=== PATIENT | male | born 1965 | race African-American/Black ===

== ENCOUNTER → 2016-06-13 | Outpatient (CLI) | payer OTHER | LOC: RAD 09:58 | PROVIDERS: ATTEND Internal Medicine Gastroenterology | DX: K76.0 Fatty (change of) liver, not elsewhere classified (principal); R93.3 Abnormal findings on diagnostic imaging of other parts of digestive tract | CPT/HCPCS: 74150; 82565 ==

== ENCOUNTER 2017-01-25 23:46 | Inpatient (IN) | payer OTHER ==
[2017-01-26 04:56] LABS: HEMATOCRIT 37.8 % (37.9-51.0); HEMOGLOBIN 13.3 g/dL (13.5-17.0); HGB HCT DIFFERENCE 2.1; MEAN CORPUSCULAR HEMOGLOBIN 28.3 pg (27.0-33.4); MEAN CORPUSCULAR HGB CONC 35.2 g/dL (32.0-36.0); MEAN CORPUSCULAR VOLUME 81 fl (80-97); RED CELL DISTRIBUTION WIDTH 14.2 % (11.5-14.0); WHITE BLOOD COUNT 12.5 10^3/uL (4.0-10.5)
[2017-01-26 05:18] LABS: BAND NEUTROPHILS % (MANUAL) 2 % (3-5); BASOPHILS % (MANUAL) 0 % (0-2); EOSINOPHILS % (MANUAL) 0 % (0-6); LYMPHOCYTES % (MANUAL) 12 % (13-45); TOTAL CELLS COUNTED 100; TOXIC GRANULATION SLIGHT; TOXIC VACUOLATION PRESENT
[2017-01-26 05:19] LABS: ANISOCYTOSIS SLIGHT; MICROCYTOSIS SLIGHT; ROULEAUX SLIGHT
[2017-01-26 05:32] LABS: APPEARANCE,URINE SLIGHTLY-CLOUDY; BILIRUBIN,URINE NEGATIVE (NEGATIVE); GLUCOSE, URINE >=500 mg/dL (NEGATIVE); KETONES,URINE TRACE mg/dL (NEGATIVE); LEUKOCYTE ESTERASE,URINE NEGATIVE (NEGATIVE); NITRITE,URINE NEGATIVE (NEGATIVE); PROTEIN,URINE 100 mg/dL (NEGATIVE); URINE SPECIFIC GRAVITY 1.018; UROBILINOGEN,URINE NEGATIVE mg/dL (<2.0)
--- NOTE | 2017-01-26 05:51 | ER Document Report ---
ED GI/ - General Mode of Arrival: Ambulatory Information source: Patient TRAVEL OUTSIDE OF THE [place] IN LAST 30 DAYS: No <MECHELLE CABA - Last Filed: 01/26/17 07:35> <MATIAS VAZQUEZ - Last Filed: 01/26/17 13:32> - General Chief Complaint: Abdominal Pain Stated Complaint: ABDOMINAL PAIN Time Seen by Provider: 01/26/17 03:11 Notes: Patient is a 51-year-old male who presents to the ER today for abdominal pain all over his abdomen 3 days. Patient states that there is no pattern with anything as it does not really ever go away and is pretty constant in nature. He still has all of his abdominal organs, has no history of pancreatitis or gallbladder disease. He states he has been having normal bowel movements. He denies any nausea or vomiting but does state that he has not had an appetite over the last few days. He denies any fevers or chills that he knows of. He does not drink any alcohol. (MECHELLE CABA) - Related Data Allergies/Adverse Reactions: No Known Allergies Allergy (Unverified 05/30/12 19:54) Home Medications: Current Home Medications Amlodipine Besylate [Norvasc 5 mg Tablet] 5 mg PO DAILY 01/26/17 [History] Aspirin [Adult Low Dose Aspirin EC] 81 mg PO DAILY 01/26/17 [History] Ergocalciferol (Vitamin D2) [Vitamin D2] 50,000 unit PO MOWE@1000 01/26/17 [ History] Esomeprazole Magnesium [Nexium] 40 mg PO DAILY 01/26/17 [History] Fenofibrate Nanocrystallized [Tricor] 145 mg PO DAILY 01/26/17 [History] Ibuprofen [Motrin 800 mg Tablet] 800 mg PO Q6HP PRN 01/26/17 [History] Linagliptin [Tradjenta] 5 mg PO DAILY 01/26/17 [History] Lisinopril/Hydrochlorothiazide [Lisinopril-Hctz 20-12.5 mg Tab] 2 each PO DAILY 01/26/17 [History] Nebivolol HCl [Bystolic] 20 mg PO DAILY 01/26/17 [History] [place]-3 Acid Ethyl Esters [Lovaza 1 gm Capsule] 1 gm PO DAILY 09/15/17 [History] Past Medical History - General Information source: Patient - Social History Smoking Status: Never Smoker Chew tobacco use (# tins/day): No Frequency of alcohol use: None Drug Abuse: None Family History: Reviewed & Not Pertinent Patient has suicidal ideation: No Patient has homicidal ideation: No - Past Medical History Cardiac Medical History: Reports: Hx Hypertension Denies: Hx Coronary Artery Disease, Hx Heart Attack Pulmonary Medical History: Reports: Hx COPD Denies: Hx Asthma, Hx Bronchitis, Hx Pneumonia Neurological Medical History: Denies: Hx Cerebrovascular Accident, Hx Seizures Renal/ Medical History: Denies: Hx Peritoneal Dialysis GI Medical History: Reports: Hx Gastroesophageal Reflux Disease Musculoskeltal Medical History: Denies Hx Arthritis Past Surgical History: Reports: Hx Umbilical Hernia - Immunizations Immunizations up to date: Yes Hx Diphtheria, Pertussis, Tetanus Vaccination: Yes <MECHELLE CABA - Last Filed: 01/26/17 07:35> Review of Systems - Review of Systems Constitutional: No symptoms reported EENT: No symptoms reported Cardiovascular: No symptoms reported Respiratory: No symptoms reported Gastrointestinal: See HPI Genitourinary: No symptoms reported Male Genitourinary: No symptoms reported Musculoskeletal: No symptoms reported Skin: No symptoms reported Hematologic/Lymphatic: No symptoms reported Neurological/Psychological: No symptoms reported <MECHELLE CABA - Last Filed: 01/26/17 07:35> Physical Exam <MECHELLE CABA - Last Filed: 01/26/17 07:35> <MATIAS VAZQUEZ - Last Filed: 01/26/17 13:32> - Vital signs Vitals: Temp Pulse Resp BP Pulse Ox 98.5 F 97 18 99/55 L 98 01/26/17 00:45 01/26/17 00:45 01/26/17 00:45 01/26/17 00:45 01/26/17 00:45 - Notes Notes: PHYSICAL EXAMINATION: GENERAL: Mildly uncomfortable appearing, but in no acute distress. HEAD: Atraumatic, normocephalic. EYES: Pupils equal round and reactive to light, extraocular movements intact, sclera anicteric, conjunctiva are normal. NECK: Normal range of motion, supple without lymphadenopathy LUNGS: CTAB and equal. No wheezes rales or rhonchi. HEART: Regular rate and rhythm without murmurs ABDOMEN: Soft, mild diffuse tenderness. No guarding, no rebound BACK: no vertebral tenderness, normal ROM GI/: no CVA tenderness EXTREMITIES: Normal range of motion, no pitting edema. No cyanosis. NEUROLOGICAL: Cranial nerves grossly intact. Normal sensory/motor exams. PSYCH: Normal mood, normal affect. SKIN: Warm, Dry, normal turgor, no rashes or lesions noted (MECHELLE CABA) Course - Laboratory Result Diagrams: 01/26/17 04:20 01/26/17 04:20 <MECHELLE CABA - Last Filed: 01/26/17 07:35> - Laboratory Result Diagrams: 01/26/17 04:20 01/26/17 08:23 - Diagnostic Test Radiology reviewed: Reports reviewed <MATIAS VAZQUEZ - Last Filed: 01/26/17 13:32> - Re-evaluation Re-evalutation: 01/26/17 07:38 White count is 12.5, CAT scan reveals pancreatitis or duodenitis type pattern. Awaiting CMP for lipase. (MECHELLE CABA) 01/26/17 07:30 Report and handoff received from Mechelle SHORE 01/26/17 08:16 Patient complains of continued abdominal pain. Lab to redraw patient's blood as it hemolyzed yet again. 01/26/17 09:[address] Sr regarding patient management. Advises IV insulin , sodium bicarb as well as albuterol nebulizer. Advises consultation with patient's primary doctor for admission peer 01/26/17 09:49 Dr. Sr reviewed patient's EKG, advises giving patient 20 units of insulin IV at this time. Consulted with Dr. Sánchez who agrees to accept patient to [facility] for admission (MATIAS VAZQUEZ) - Vital Signs Vital signs: Temp Pulse Resp BP Pulse Ox 98.3 F 84 16 123/80 94 01/26/17 08:28 01/26/17 08:28 01/26/17 12:17 01/26/17 12:17 01/26/17 12:17 - Laboratory Laboratory results interpreted by me: 01/26/17 01/26/17 01/26/17 04:20 05:15 08:23 WBC 12.5 H Hgb 13.3 L Hct 37.8 L RDW 14.2 H Seg Neuts % (Manual) 80 H Band Neutrophils % 2 L Lymphocytes % (Manual) 12 L Abs Neuts (Manual) 10.3 H Sodium 126.0 L Potassium 6.6 H* Chloride 90 L Carbon Dioxide 11 L Anion Gap 25 H BUN 66 H Creatinine 3.77 H Est GFR ( Amer) 21 L Est GFR (Non-Af Amer) 17 L Glucose 712 H* Calcium 10.8 H Direct Bilirubin 0.9 H Total Protein 9.5 H Lipase 797.4 H Urine Protein 100 H Urine Glucose (UA) >=500 H Urine Ketones TRACE H Urine Blood MODERATE H 01/26/17 09:50 Labs- Entire Visit 01/26/17 01/26/17 01/26/17 04:20 04:20 04:50 WBC 12.5 H RBC 4.70 Hgb 13.3 L Hct 37.8 L MCV 81 MCH 28.3 MCHC 35.2 RDW 14.2 H Plt Count 277 Total Counted 100 Seg Neutrophils % Not Reportable Seg Neuts % (Manual) 80 H Band Neutrophils % 2 L Lymphocytes % Not Reportable Lymphocytes % (Manual) 12 L Monocytes % Not Reportable Monocytes % (Manual) 6 Eosinophils % Not Reportable Eosinophils % (Manual) 0 Basophils % Not Reportable Basophils % (Manual) 0 Absolute Neutrophils Not Reportable Abs Neuts (Manual) 10.3 H Absolute Lymphocytes Not Reportable Abs Lymphs (Manual) 1.5 Absolute Monocytes Not Reportable Abs Monocytes (Manual) 0.8 Absolute Eosinophils Not Reportable Absolute Eos (Manual) 0.0 Absolute Basophils Not Reportable Abs Basophils (Manual) 0.0 Toxic Granulation SLIGHT Toxic Vacuolation PRESENT Platelet Comment ADEQUATE Anisocytosis SLIGHT Microcytosis SLIGHT Rouleaux SLIGHT Sodium Cancelled Cancelled Potassium Cancelled Cancelled Chloride Cancelled Cancelled Carbon Dioxide Cancelled Cancelled Anion Gap Cancelled Cancelled BUN Cancelled Cancelled Creatinine Cancelled Cancelled Est GFR ( Amer) Cancelled Cancelled Est GFR (Non-Af Amer) Cancelled Cancelled Glucose Cancelled Cancelled Calcium Cancelled Cancelled Total Bilirubin Cancelled Cancelled Direct Bilirubin Cancelled Cancelled Indirect Bilirubin Cancelled Cancelled Neonat Total Bilirubin Cancelled Cancelled AST Cancelled Cancelled ALT Cancelled Cancelled Alkaline Phosphatase Cancelled Cancelled Total Protein Cancelled Cancelled Albumin Cancelled Cancelled Lipase Cancelled Cancelled Urine Color Urine Appearance Urine pH Ur Specific [place] Urine Protein Urine Glucose (UA) Urine Ketones Urine Blood Urine Nitrite Urine Bilirubin Urine Urobilinogen Ur Leukocyte Esterase Urine WBC (Auto) Urine RBC (Auto) Squamous Epi Cells Auto Urine Mucus (Auto) Urine Ascorbic Acid 01/26/17 01/26/17 01/26/17 05:15 06:30 07:30 WBC RBC Hgb Hct MCV MCH MCHC RDW Plt Count Total Counted Seg Neutrophils % Seg Neuts % (Manual) Band Neutrophils % Lymphocytes % Lymphocytes % (Manual) Monocytes % Monocytes % (Manual) Eosinophils % Eosinophils % (Manual) Basophils % Basophils % (Manual) Absolute Neutrophils Abs Neuts (Manual) Absolute Lymphocytes Abs Lymphs (Manual) Absolute Monocytes Abs Monocytes (Manual) Absolute Eosinophils Absolute Eos (Manual) Absolute Basophils Abs Basophils (Manual) Toxic Granulation Toxic Vacuolation Platelet Comment Anisocytosis Microcytosis Rouleaux Sodium Cancelled Cancelled Potassium Cancelled Cancelled Chloride Cancelled Cancelled Carbon Dioxide Cancelled Cancelled Anion Gap Cancelled Cancelled BUN Cancelled Cancelled Creatinine Cancelled Cancelled Est GFR ( Amer) Cancelled Cancelled Est GFR (Non-Af Amer) Cancelled Cancelled Glucose Cancelled Cancelled Calcium Cancelled Cancelled Total Bilirubin Cancelled Cancelled Direct Bilirubin Cancelled Cancelled Indirect Bilirubin Cancelled Cancelled Neonat Total Bilirubin Cancelled Cancelled AST Cancelled Cancelled ALT Cancelled Cancelled Alkaline Phosphatase Cancelled Cancelled Total Protein Cancelled Cancelled Albumin Cancelled Cancelled Lipase Cancelled Cancelled Urine Color YELLOW Urine Appearance SLIGHTLY-CLOUDY Urine pH 5.0 Ur Specific [place] 1.018 Urine Protein 100 H Urine Glucose (UA) >=500 H Urine Ketones TRACE H Urine Blood MODERATE H Urine Nitrite NEGATIVE Urine Bilirubin NEGATIVE Urine Urobilinogen NEGATIVE Ur Leukocyte Esterase NEGATIVE Urine WBC (Auto) 2 Urine RBC (Auto) 0 Squamous Epi Cells Auto <1 Urine Mucus (Auto) RARE Urine Ascorbic Acid NEGATIVE 01/26/17 08:23 WBC RBC Hgb Hct MCV MCH MCHC RDW Plt Count Total Counted Seg Neutrophils % Seg Neuts % (Manual) Band Neutrophils % Lymphocytes % Lymphocytes % (Manual) Monocytes % Monocytes % (Manual) Eosinophils % Eosinophils % (Manual) Basophils % Basophils % (Manual) Absolute Neutrophils Abs Neuts (Manual) Absolute Lymphocytes Abs Lymphs (Manual) Absolute Monocytes Abs Monocytes (Manual) Absolute Eosinophils Absolute Eos (Manual) Absolute Basophils Abs Basophils (Manual) Toxic Granulation Toxic Vacuolation Platelet Comment Anisocytosis Microcytosis Rouleaux Sodium 126.0 L Potassium 6.6 H* Chloride 90 L Carbon Dioxide 11 L Anion Gap 25 H BUN 66 H Creatinine 3.77 H Est GFR ( Amer) 21 L Est GFR (Non-Af Amer) 17 L Glucose 712 H* Calcium 10.8 H Total Bilirubin 1.1 Direct Bilirubin 0.9 H Indirect Bilirubin Not Reportable Neonat Total Bilirubin Not Reportable AST 31 ALT 47 Alkaline Phosphatase 87 Total Protein 9.5 H Albumin 4.1 Lipase 797.4 H Urine Color Urine Appearance Urine pH Ur Specific [place] Urine Protein Urine Glucose (UA) Urine Ketones Urine Blood Urine Nitrite Urine Bilirubin Urine Urobilinogen Ur Leukocyte Esterase Urine WBC (Auto) Urine RBC (Auto) Squamous Epi Cells Auto Urine Mucus (Auto) Urine Ascorbic Acid (MATIAS VAZQUEZ) Discharge <MECHELLE CABA - Last Filed: 01/26/17 07:35> - Discharge Admitting Provider: Gonzalo Unit Admitted: [facility] <MATIAS VAZQUEZ - Last Filed: 01/26/17 13:32> - Discharge Clinical Impression: Duodenitis, Acute kidney injury, Hyperkalemia, Hyperglycemia Abdominal pain Qualifiers: Abdominal location: generalized Qualified Code(s): R10.84 - Generalized abdominal pain Disposition: ADMITTED INPATIENT
--- NOTE | 2017-01-26 07:25 | RADIOLOGY REPORT (SQ) ---
EXAM DESCRIPTION: CT ABD/PELVIS NO ORAL OR IV COMPLETED DATE/TIME: 01/26/2017 7:09 am REASON FOR STUDY: abd pain, rlq, nausea COMPARISON: 1.31.17 TECHNIQUE: CT scan of the abdomen and pelvis performed without intravenous or oral contrast. Images reviewed with lung, soft tissue, and bone windows. Reconstructed coronal and sagittal MPR images revi ewed. All images stored on PACS. All CT scanners at this facility use dose modulation, iterative reconstruction, and/or weight based d osing when appropriate to reduce radiation dose to as low as reasonably achievable (ALARA). [facility]: Dose Right [facility]: CareDose [facility]: Dose Right [facility]: Teradose 4D [facility]: [employer] RADIATION DOSE: Up-to-date CT equipment and radiation dose reduction techniques were employed. CTDIv ol: 12.5 mGy. DLP: 706 mGy-cm.mGy. LIMITATIONS: None. FINDINGS: LOWER CHEST: No significant findings. No nodules or infiltrates. NON-CONTRASTED LIVER, SPLEEN, ADRENALS: Evaluation limited by lack of IV contrast. No identified sign ificant masses. Low-density area of of the right hepatic lobe medially consistent with previously mckenna spected fatty infiltration. No suspicious enhancement abnormality. PANCREAS: Small fluid surrounds the pancreatic head and 2nd duodenum portion and small ascites extend s toward the right pericolic gutter. GALLBLADDER: No identified stones by CT criteria. No inflammatory changes to suggest cholecystitis. RIGHT KIDNEY AND URETER: No suspicious masses. Assessment limited by lack of IV contrast. No signif icant calcifications. No hydronephrosis or hydroureter. LEFT KIDNEY AND URETER: No suspicious masses. Assessment limited by lack of IV contrast. No signifi cant calcifications. No hydronephrosis or hydroureter. AORTA AND RETROPERITONEUM: No aneurysm. No retroperitoneal masses or adenopathy. BOWEL AND PERITONEAL CAVITY: No obvious masses or inflammatory changes. Small ascites as above. Sma ll diverticulosis. APPENDIX: Normal. PELVIS, BLADDER, AND ABDOMINAL WALL:No abnormal masses. Bladder normal. BONES: Mild L5-S1 vacuum disc desiccation. Mild-moderate bilateral L5 foraminal stenosis. OTHER: No other significant finding. IMPRESSION: Moderate pancreatitis/duodenitis pattern. COMMENT: Quality ID # [id number]: Final reports with documentation of one or more dose reduction techniques (e.g., Automated exposure control, adjustment of the mA and/or kV according to patient size, use of iterative reconstruction technique) TECHNICAL DOCUMENTATION: JOB ID: [id number] All Rights Reserved
[2017-01-26] MEDS ORDERED: NORMAL SALINE 1000 ML 1,000 ML IV ONE ×3 (08:16→10:20)
[2017-01-26 08:51] LABS: ALBUMIN 4.1 g/dL (3.5-5.0); BILIRUBIN,DIRECT 0.9 mg/dL (0.0-0.4); BILIRUBIN,TOTAL 1.1 mg/dL (0.2-1.3); CALCIUM 10.8 mg/dL (8.4-10.2); CARBON DIOXIDE 11 mmol/L (22-30); CHLORIDE 90 mmol/L (98-107); CREATININE RESULT 3.77 mg/dL (0.52-1.25); LIPASE 797.4 U/L (23-300); TOTAL PROTEIN 9.5 g/dL (6.3-8.2)
[2017-01-26 09:13] LABS: ANION GAP 25 (5-19)
[2017-01-26 09:18] LABS: GLUCOSE 712 mg/dL (75-110)
[2017-01-26 09:19] LABS: POTASSIUM 6.6 mmol/L (3.6-5.0)
[2017-01-26 09:20] LABS: BLOOD UREA NITROGEN 66 mg/dL (7-20)
[2017-01-26 09:21] LABS: ALANINE AMINOTRANSFERASE 47 U/L (21-72); ALKALINE PHOSPHATASE 87 U/L (38-126); ASPARTATE AMINO TRANSFERASE 31 U/L (17-59)
[2017-01-26] MEDS ORDERED: SODIUM BICARBONATE 8.4% INJ 50 MEQ/50 ML DISP.SYRIN IV ONE (09:35)
[2017-01-26] MEDS ORDERED: ALBUTEROL SULFATE 0.083% NEB 2.5 MG/3 ML AMPUL NEB ONE (09:35)
[2017-01-26] MEDS ORDERED: INSULIN REG, HUMAN 100 UNIT/ML 3 ML VIAL (PYX) IV ONE ×2 (09:35→09:49)
[2017-01-26] MEDS ORDERED: NORMAL SALINE 1000 ML 1,000 ML IV PRN ×2 (11:05→13:14)
[2017-01-26] MEDS ORDERED: GLUCAGON,HUMAN RECOMB 1 MG INJ SUBCUT PRN (13:15)
[2017-01-26] MEDS ORDERED: DEXTROSE 50%-WATER 25 GM/50 ML DISP.SYRIN IV PRN ×4 (13:15→13:19)
[2017-01-26] MEDS ORDERED: DEXTROSE 40% GEL 15 GM TUBE PO PRN ×4 (13:15→13:19)
[2017-01-26] MEDS ORDERED: GLUCAGON,HUMAN RECOMB 1 MG INJ IM PRN (13:19)
[2017-01-26 14:17] LABS: HEMATOCRIT 33.3 % (37.9-51.0); HEMOGLOBIN 11.9 g/dL (13.5-17.0); HGB HCT DIFFERENCE 2.4; MEAN CORPUSCULAR HEMOGLOBIN 27.8 pg (27.0-33.4); MEAN CORPUSCULAR HGB CONC 35.7 g/dL (32.0-36.0); MEAN CORPUSCULAR VOLUME 78 fl (80-97); RED BLOOD COUNT 4.27 10^6/uL (4.35-5.55); WHITE BLOOD COUNT 9.3 10^3/uL (4.0-10.5)
[2017-01-26 14:22] LABS: PROTHROMBIN TIME 13.5 SEC (11.4-15.4)
[2017-01-26 14:39] LABS: BASOPHILS % (MANUAL) 0 % (0-2); EOSINOPHILS % (MANUAL) 0 % (0-6); LYMPHOCYTES % (MANUAL) 18 % (13-45); TOTAL CELLS COUNTED 100
[2017-01-26 14:40] LABS: TOXIC VACUOLATION PRESENT
[2017-01-26 14:41] LABS: ANION GAP 19 (5-19); BLOOD UREA NITROGEN 59 mg/dL (7-20); CALCIUM 9.9 mg/dL (8.4-10.2); CARBON DIOXIDE 15 mmol/L (22-30); CHLORIDE 97 mmol/L (98-107); SODIUM 130.6 mmol/L (137-145)
[2017-01-26 14:42] LABS: ANISOCYTOSIS SLIGHT; MICROCYTOSIS SLIGHT; PLATELET CLUMPS PRESENT
[2017-01-26 14:43] LABS: ROULEAUX SLIGHT
[2017-01-26 14:54] LABS: CREATINE KINASE MB 0.99 ng/mL (<4.55)
[2017-01-26 15:00] LABS: TROPONIN I < 0.012 ng/mL
[2017-01-26 15:01] LABS: POTASSIUM 5.6 mmol/L (3.6-5.0)
[2017-01-26 15:06] LABS: GLUCOSE 579 mg/dL (75-110)
[2017-01-26 15:11] LABS: THYROID STIMULATING HORMONE 0.52 uIU/mL (0.47-4.68)
[2017-01-26] MEDS: HEPARIN SOD (PORCINE) 5,000 UNIT/ML 1 ML SYRINGE SUBCUT SCH ×2 (16:17→21:16)
[2017-01-26] MEDS: NORMAL SALINE 100 ML with INSULIN REGULAR, HUMAN 100 UNIT IV PRN ×2 (16:23)
--- NOTE | 2017-01-26 17:21 | EKG REPORT ---
SEVERITY:- BORDERLINE ECG - SINUS RHYTHM BORDERLINE T ABNORMALITIES, INFERIOR LEADS : Confirmed by: Glenda Spencer 26-Jan-2017 17:20:49
[2017-01-26 17:32] LABS: APPEARANCE,URINE CLEAR; BILIRUBIN,URINE NEGATIVE (NEGATIVE); GLUCOSE, URINE >=500 mg/dL (NEGATIVE); KETONES,URINE TRACE mg/dL (NEGATIVE); LEUKOCYTE ESTERASE,URINE NEGATIVE (NEGATIVE); NITRITE,URINE NEGATIVE (NEGATIVE); PROTEIN,URINE 30 mg/dL (NEGATIVE); URINE SPECIFIC GRAVITY 1.014; UROBILINOGEN,URINE NEGATIVE mg/dL (<2.0)
[2017-01-26 17:47] LABS: URINE BARBITURATES SCREEN NEGATIVE; URINE METHADONE SCREEN NEGATIVE; URINE OPIATES LOW NEGATIVE; URINE PHENCYCLIDINE SCREEN NEGATIVE
[2017-01-26 17:52] LABS: ANION GAP 17 (5-19); BLOOD UREA NITROGEN 55 mg/dL (7-20); CALCIUM 10.1 mg/dL (8.4-10.2); CARBON DIOXIDE 17 mmol/L (22-30); CHLORIDE 99 mmol/L (98-107); CREATININE RESULT 2.66 mg/dL (0.52-1.25); SODIUM 132.6 mmol/L (137-145)
[2017-01-26 18:38] LABS: GLUCOSE 444 mg/dL (75-110)
--- NOTE | 2017-01-26 20:03 | PDOC H&P ---
History of Present Illness Admission Date/PCP: 01/26/17 13:16 JUNIOR GROSS MD History of Present Illness: JARRELL MCNALLY is a 51 year old male he came to the emergency room today for evaluation of abdominal pain for the last 3 days, he has a history of chronic kidney disease stage III, progressive, he was recently diagnosed with diabetes mellitus, and he was recently started on Tradjenta and insulin because of his chronic kidney disease it could not be started on many of the oral hypoglycemic agents. In the emergency room he was evaluated a CAT scan of the abdomen and pelvis was done with no contrast it showed fluid surrounds the pancreas and consistent with pancreatitis, the serum lipase was elevated he was also in diabetic ketoacidosis. The glucose was 712, lipase 797, anion gap 25, creatinine 3.77 potassium 6.6 Past Medical History Cardiac Medical History: Reports: Hypertension Pulmonary Medical History: Reports: Chronic Obstructive Pulmonary Disease (COPD) Endocrine Medical History: Reports: Diabetes Mellitus Type 2 Renal/ Medical History: Reports: Other - Chronic kidney disease stage III GI Medical History: Reports: Gastroesophageal Reflux Disease Social History Smoking Status: Never Smoker Hx Recreational Drug Use: No Hx Prescription Drug Abuse: No - Advance Directive Resuscitation Status: Full Code Family History Family History: Reviewed & Not Pertinent Parental Family History Reviewed: Yes Children Family History Reviewed: Yes Sibling(s) Family History Reviewed.: Yes Medication/Allergy Home Medications: Amlodipine Besylate [Norvasc 5 mg Tablet] 5 mg PO DAILY 01/26/17 Aspirin [Adult Low Dose Aspirin EC] 81 mg PO DAILY 01/26/17 Ergocalciferol (Vitamin D2) [Vitamin D2] 50,000 unit PO MOWE@1000 01/26/17 Esomeprazole Magnesium [Nexium] 40 mg PO DAILY 01/26/17 Fenofibrate Nanocrystallized [Tricor] 145 mg PO DAILY 01/26/17 Ibuprofen [Motrin 800 mg Tablet] 800 mg PO Q6HP PRN 01/26/17 Linagliptin [Tradjenta] 5 mg PO DAILY 01/26/17 Lisinopril/Hydrochlorothiazide [Lisinopril-Hctz 20-12.5 mg Tab] 2 each PO DAILY 01/26/17 Nebivolol HCl [Bystolic] 20 mg PO DAILY 01/26/17 [place]-3 Acid Ethyl Esters [Lovaza 1 gm Capsule] 1 gm PO DAILY 01/26/17 Allergies/Adverse Reactions: No Known Allergies Allergy (Unverified 05/30/12 19:54) Review of Systems Constitutional: PRESENT: fever(s) Eyes: ABSENT: visual disturbances Ears: ABSENT: hearing changes Cardiovascular: ABSENT: chest pain, dyspnea on exertion, edema, orthropnea, palpitations Respiratory: ABSENT: cough, hemoptysis Gastrointestinal: PRESENT: abdominal pain Genitourinary: ABSENT: dysuria, hematuria Musculoskeletal: ABSENT: joint swelling Integumentary: ABSENT: rash, wounds Neurological: ABSENT: abnormal gait, abnormal speech, confusion, dizziness, focal weakness, syncope Psychiatric: ABSENT: anxiety, depression, homidical ideation, suicidal ideation Endocrine: ABSENT: cold intolerance, heat intolerance, menstrual abnormalities, polydipsia, polyuria Hematologic/Lymphatic: ABSENT: easy bleeding, easy bruising, lymphadenopathy Physical Exam Vital Signs: Temp Pulse Resp BP Pulse Ox 98.3 F 85 18 130/70 H 94 01/26/17 17:03 01/26/17 17:03 01/26/17 17:03 01/26/17 17:03 01/26/17 17:03 Intake & Output 01/25/17 01/26/17 01/27/17 06:59 06:59 06:59 Weight 110.9 kg General appearance: PRESENT: no acute distress, well-developed, well-nourished Head exam: PRESENT: atraumatic, normocephalic Eye exam: PRESENT: conjunctiva pink, EOMI, PERRLA Ear exam: PRESENT: normal external ear exam Mouth exam: PRESENT: dry mucosa Neck exam: PRESENT: full ROM Respiratory exam: PRESENT: clear to auscultation duglas Cardiovascular exam: PRESENT: RRR, +S1, +S2 GI/Abdominal exam: PRESENT: normal bowel sounds, soft Rectal exam: PRESENT: deferred Neurological exam: PRESENT: alert, awake, oriented to person, oriented to place , oriented to time, oriented to situation, CN II-XII grossly intact Psychiatric exam: PRESENT: appropriate affect, normal mood Skin exam: PRESENT: dry, intact, warm Results Laboratory Results: 01/26/17 14:04 01/26/17 17:30 01/26/17 01/26/17 01/26/17 14:04 14:04 14:04 WBC 9.3 RBC 4.27 L Hgb 11.9 L Hct 33.3 L MCV 78 L MCH 27.8 MCHC 35.7 RDW 14.0 Plt Count 240 Seg Neutrophils % Not Reportable Lymphocytes % Not Reportable Monocytes % Not Reportable Eosinophils % Not Reportable Basophils % Not Reportable Absolute Neutrophils Not Reportable Absolute Lymphocytes Not Reportable Absolute Monocytes Not Reportable Absolute Eosinophils Not Reportable Absolute Basophils Not Reportable Sodium Potassium Chloride Carbon Dioxide Anion Gap BUN Creatinine Est GFR ( Amer) Est GFR (Non-Af Amer) Glucose Calcium Phosphorus 6.0 H TSH 0.52 Free T4 1.06 Urine Color Urine Appearance Urine pH Ur Specific [place] Urine Protein Urine Glucose (UA) Urine Ketones Urine Blood Urine Nitrite Ur Leukocyte Esterase Urine WBC (Auto) 01/26/17 01/26/17 01/26/17 14:04 17:00 17:30 WBC RBC Hgb Hct MCV MCH MCHC RDW Plt Count Seg Neutrophils % Lymphocytes % Monocytes % Eosinophils % Basophils % Absolute Neutrophils Absolute Lymphocytes Absolute Monocytes Absolute Eosinophils Absolute Basophils Sodium 130.6 L 132.6 L Potassium 5.6 H D 5.0 Chloride 97 L 99 Carbon Dioxide 15 L 17 L Anion Gap 19 17 BUN 59 H 55 H Creatinine 3.00 H 2.66 H Est GFR ( Amer) 27 L 31 L Est GFR (Non-Af Amer) 22 L 25 L Glucose 579 H* 444 H* Calcium 9.9 10.1 Phosphorus TSH Free T4 Urine Color STRAW Urine Appearance CLEAR Urine pH 6.0 Ur Specific [place] 1.014 Urine Protein 30 H Urine Glucose (UA) >=500 H Urine Ketones TRACE H Urine Blood MODERATE H Urine Nitrite NEGATIVE Ur Leukocyte Esterase NEGATIVE Urine WBC (Auto) 1 01/26/17 01/26/17 14:04 14:04 CK-MB (CK-2) 0.99 Troponin I < 0.012 NT-Pro-B Natriuret Pep 28 Impressions: Abdomen/Pelvis CT 01/26/17 05:24 IMPRESSION: Moderate pancreatitis/duodenitis pattern. Assessment & Plan - Diagnosis (1) Acute pancreatitis Qualifiers: Pancreatitis type: unspecified pancreatitis type Acute pancreatitis complication: unspecified Qualified Code(s): K85.90 - Acute pancreatitis without necrosis or infection, unspecified Is this a current diagnosis for this admission?: Yes Plan: The acute pancreatitis is most likely metabolic in etiology, the CAT scan of the abdomen did not show any stones in the gallbladder, he does not drink alcohol, he has a history of hyperlipidemia/hypertriglyceridemia, he is supposed to be on medication for triglyceride. He be kept n.p.o. (2) Diabetic ketoacidosis Qualifiers: Diabetes mellitus type: type 2 Diabetes mellitus complication detail: without coma Qualified Code(s): E13.10 - Other specified diabetes mellitus with ketoacidosis without coma Is this a current diagnosis for this admission?: Yes Plan: Patient in DKA, the trigger could be acute pancreatitis, he would be managed per protocol (3) Hyperkalemia Is this a current diagnosis for this admission?: Yes
[2017-01-26] MEDS ORDERED: OMEGA-3 ACID ETHYL ESTERS 1 GM CAPSULE PO SCH (20:15)
[2017-01-26] MEDS ORDERED: AMLODIPINE BESYLATE 5 MG TABLET PO SCH (20:15)
[2017-01-26] MEDS ORDERED: (PENDING PHARMACY ID) (Nebivolol Hcl [Bystolic] 20 MG) PO SCH (20:15)
[2017-01-26] MEDS ORDERED: AMLODIPINE BESYLATE 5 MG TABLET PO ONE (20:30)
[2017-01-26] MEDS ORDERED: NEBIVOLOL HCL 10 MG TABLET PO ONE (21:00)
[2017-01-26] MEDS ORDERED: LANSOPRAZOLE 30 MG TAB.RAP.DR PO ONE (21:00)
[2017-01-26] MEDS ORDERED: OMEGA-3 ACID ETHYL ESTERS 1 GM CAPSULE PO ONE (21:15)
[2017-01-26 21:49] LABS: CREATINE KINASE MB 1.17 ng/mL (<4.55)
[2017-01-26 21:50] LABS: TROPONIN I < 0.012 ng/mL
[2017-01-26] MEDS ORDERED: INSULIN GLARGINE,HUM.REC.ANLOG 300 UNIT/3 ML INSULN.PEN SUBCUT SCH (22:00)
[2017-01-26 22:13] LABS: ANION GAP 16 (5-19); BLOOD UREA NITROGEN 52 mg/dL (7-20); CALCIUM 10.9 mg/dL (8.4-10.2); CARBON DIOXIDE 17 mmol/L (22-30); CHLORIDE 103 mmol/L (98-107); CREATININE RESULT 2.44 mg/dL (0.52-1.25); GLUCOSE 244 mg/dL (75-110); POTASSIUM 4.7 mmol/L (3.6-5.0); SODIUM 136.2 mmol/L (137-145)
[2017-01-27] MEDS: DEXTROSE 5%-NORMAL SALINE 1,000 ML IV PRN (00:47)
[2017-01-27 01:49] LABS: ANION GAP 13 (5-19); BLOOD UREA NITROGEN 53 mg/dL (7-20); CALCIUM 10.7 mg/dL (8.4-10.2); CARBON DIOXIDE 22 mmol/L (22-30); CHLORIDE 105 mmol/L (98-107); GLUCOSE 134 mg/dL (75-110); POTASSIUM 4.1 mmol/L (3.6-5.0); SODIUM 139.9 mmol/L (137-145)
[2017-01-27 02:00] LABS: CREATINE KINASE MB 0.94 ng/mL (<4.55)
[2017-01-27 02:02] LABS: TROPONIN I < 0.012 ng/mL
[2017-01-27] MEDS: HEPARIN SOD (PORCINE) 5,000 UNIT/ML 1 ML SYRINGE SUBCUT SCH ×3 (05:59→21:55)
[2017-01-27 06:14] LABS: ALANINE AMINOTRANSFERASE 37 U/L (21-72); ALBUMIN 3.8 g/dL (3.5-5.0); ALKALINE PHOSPHATASE 65 U/L (38-126); AMYLASE 135 U/L (30-110); ANION GAP 13 (5-19); ASPARTATE AMINO TRANSFERASE 28 U/L (17-59); BILIRUBIN,DIRECT 0.5 mg/dL (0.0-0.4); BILIRUBIN,TOTAL 0.6 mg/dL (0.2-1.3); BLOOD UREA NITROGEN 53 mg/dL (7-20); CALCIUM 10.4 mg/dL (8.4-10.2); CARBON DIOXIDE 20 mmol/L (22-30); CHLORIDE 105 mmol/L (98-107); CREATININE RESULT 2.73 mg/dL (0.52-1.25); Direct HDL 30 mg/dL (>40); GLUCOSE 77 mg/dL (75-110); LIPASE 638.4 U/L (23-300); MAGNESIUM 2.9 mg/dL (1.6-2.3); POTASSIUM 4.2 mmol/L (3.6-5.0); SODIUM 138.3 mmol/L (137-145); TOTAL PROTEIN 7.6 g/dL (6.3-8.2)
[2017-01-27 06:25] LABS: DIRECT LDL 79 mg/dL (<100)
[2017-01-27 06:39] LABS: CHOLESTEROL 610.36 mg/dL (0-200); TRIGLYCERIDES 2937 mg/dL (<150)
[2017-01-27] MEDS: AMLODIPINE BESYLATE 5 MG TABLET PO SCH (09:09)
[2017-01-27] MEDS: OMEGA-3 ACID ETHYL ESTERS 1 GM CAPSULE PO SCH (09:09)
[2017-01-27] MEDS: NORMAL SALINE 100 ML with INSULIN REGULAR, HUMAN 100 UNIT IV PRN ×2 (09:10)
[2017-01-27] MEDS: LANSOPRAZOLE 30 MG TAB.RAP.DR PO SCH (09:10)
[2017-01-27] MEDS ORDERED: (PENDING PHARMACY ID) (Linagliptin [Tradjenta] 5 MG) PO SCH (10:00)
[2017-01-27] MEDS ORDERED: SITAGLIPTIN PHOSPHATE 50 MG TABLET PO SCH (10:00)
[2017-01-27] MEDS: NEBIVOLOL HCL 10 MG TABLET PO SCH (10:23)
[2017-01-27 11:17] LABS: ANION GAP 13 (5-19); BLOOD UREA NITROGEN 51 mg/dL (7-20); CALCIUM 10.5 mg/dL (8.4-10.2); CARBON DIOXIDE 23 mmol/L (22-30); CHLORIDE 102 mmol/L (98-107); CREATININE RESULT 2.63 mg/dL (0.52-1.25); GLUCOSE 110 mg/dL (75-110); POTASSIUM 4.8 mmol/L (3.6-5.0); SODIUM 137.9 mmol/L (137-145)
--- NOTE | 2017-01-27 14:18 | PDOC PROGRESS REPORT ---
Subjective Progress Note for:: 01/27/17 Subjective:: Patient continue to experience slight abdominal pain. No nausea or vomiting. Tolerating ice chips. No fever or chills. No chest pain or SOB. Remain on IV fluid support therapy. Physical Exam Vital Signs: Temp Pulse Resp BP Pulse Ox 98.0 F 70 17 112/78 96 01/27/17 11:47 01/27/17 11:47 01/27/17 11:47 01/27/17 11:47 01/27/17 11:47 Intake & Output 01/26/17 01/27/17 01/28/17 06:59 06:59 06:59 Intake Total 2418 Balance 2418 Weight 111.2 kg General appearance: PRESENT: no acute distress Head exam: PRESENT: atraumatic, normocephalic Eye exam: PRESENT: conjunctiva pink, scleral icterus. ABSENT: conjunctiva pale Mouth exam: PRESENT: moist Respiratory exam: PRESENT: clear to auscultation duglas Cardiovascular exam: PRESENT: RRR. ABSENT: diastolic murmur, rubs, systolic murmur GI/Abdominal exam: PRESENT: normal bowel sounds, tenderness - lower quadrants. ABSENT: ascites, distended, guarding, mass, Bass's sign, rebound Rectal exam: PRESENT: deferred Extremities exam: ABSENT: pedal edema Musculoskeletal exam: PRESENT: normal inspection Neurological exam: PRESENT: alert, awake, oriented to person, oriented to place , oriented to time, oriented to situation, CN II-XII grossly intact. ABSENT: motor sensory deficit Psychiatric exam: PRESENT: appropriate affect, normal mood. ABSENT: homicidal ideation, suicidal ideation Skin exam: PRESENT: dry, intact, warm. ABSENT: cyanosis, rash Results Laboratory Results: 01/26/17 14:04 01/27/17 10:36 01/26/17 01/26/17 01/26/17 14:04 14:04 14:04 WBC 9.3 RBC 4.27 L Hgb 11.9 L Hct 33.3 L MCV 78 L MCH 27.8 MCHC 35.7 RDW 14.0 Plt Count 240 Seg Neutrophils % Not Reportable Lymphocytes % Not Reportable Monocytes % Not Reportable Eosinophils % Not Reportable Basophils % Not Reportable Absolute Neutrophils Not Reportable Absolute Lymphocytes Not Reportable Absolute Monocytes Not Reportable Absolute Eosinophils Not Reportable Absolute Basophils Not Reportable Sodium Potassium Chloride Carbon Dioxide Anion Gap BUN Creatinine Est GFR ( Amer) Est GFR (Non-Af Amer) Glucose Calcium Phosphorus 6.0 H Magnesium Total Bilirubin AST ALT Alkaline Phosphatase Total Protein Albumin Triglycerides Cholesterol LDL Cholesterol Direct VLDL Cholesterol HDL Cholesterol Amylase Lipase TSH 0.52 Free T4 1.06 Urine Color Urine Appearance Urine pH Ur Specific Victoria Urine Protein Urine Glucose (UA) Urine Ketones Urine Blood Urine Nitrite Ur Leukocyte Esterase Urine WBC (Auto) 01/26/17 01/26/17 01/26/17 14:04 17:00 17:30 WBC RBC Hgb Hct MCV MCH MCHC RDW Plt Count Seg Neutrophils % Lymphocytes % Monocytes % Eosinophils % Basophils % Absolute Neutrophils Absolute Lymphocytes Absolute Monocytes Absolute Eosinophils Absolute Basophils Sodium 130.6 L 132.6 L Potassium 5.6 H D 5.0 Chloride 97 L 99 Carbon Dioxide 15 L 17 L Anion Gap 19 17 BUN 59 H 55 H Creatinine 3.00 H 2.66 H Est GFR ( Amer) 27 L 31 L Est GFR (Non-Af Amer) 22 L 25 L Glucose 579 H* 444 H* Calcium 9.9 10.1 Phosphorus Magnesium Total Bilirubin AST ALT Alkaline Phosphatase Total Protein Albumin Triglycerides Cholesterol LDL Cholesterol Direct VLDL Cholesterol HDL Cholesterol Amylase Lipase TSH Free T4 Urine Color STRAW Urine Appearance CLEAR Urine pH 6.0 Ur Specific Victoria 1.014 Urine Protein 30 H Urine Glucose (UA) >=500 H Urine Ketones TRACE H Urine Blood MODERATE H Urine Nitrite NEGATIVE Ur Leukocyte Esterase NEGATIVE Urine WBC (Auto) 1 01/26/17 01/27/17 01/27/17 21:30 01:27 05:35 WBC RBC Hgb Hct MCV MCH MCHC RDW Plt Count Seg Neutrophils % Lymphocytes % Monocytes % Eosinophils % Basophils % Absolute Neutrophils Absolute Lymphocytes Absolute Monocytes Absolute Eosinophils Absolute Basophils Sodium 136.2 L 139.9 138.3 Potassium 4.7 4.1 4.2 Chloride 103 105 105 Carbon Dioxide 17 L 22 20 L Anion Gap 16 13 13 BUN 52 H 53 H 53 H Creatinine 2.44 H 2.60 H 2.73 H Est GFR ( Amer) 34 L 32 L 30 L Est GFR (Non-Af Amer) 28 L 26 L 25 L Glucose 244 H 134 H 77 Calcium 10.9 H 10.7 H 10.4 H Phosphorus Magnesium 2.9 H Total Bilirubin 0.6 AST 28 ALT 37 Alkaline Phosphatase 65 Total Protein 7.6 Albumin 3.8 Triglycerides 2937 H Cholesterol 610.36 H LDL Cholesterol Direct 79 VLDL Cholesterol UNABLE TO CALCULATE HDL Cholesterol 30 L Amylase 135 H Lipase 638.4 H TSH Free T4 Urine Color Urine Appearance Urine pH Ur Specific Victoria Urine Protein Urine Glucose (UA) Urine Ketones Urine Blood Urine Nitrite Ur Leukocyte Esterase Urine WBC (Auto) 01/27/17 10:36 WBC RBC Hgb Hct MCV MCH MCHC RDW Plt Count Seg Neutrophils % Lymphocytes % Monocytes % Eosinophils % Basophils % Absolute Neutrophils Absolute Lymphocytes Absolute Monocytes Absolute Eosinophils Absolute Basophils Sodium 137.9 Potassium 4.8 Chloride 102 Carbon Dioxide 23 Anion Gap 13 BUN 51 H Creatinine 2.63 H Est GFR ( Amer) 31 L Est GFR (Non-Af Amer) 26 L Glucose 110 Calcium 10.5 H Phosphorus Magnesium Total Bilirubin AST ALT Alkaline Phosphatase Total Protein Albumin Triglycerides Cholesterol LDL Cholesterol Direct VLDL Cholesterol HDL Cholesterol Amylase Lipase TSH Free T4 Urine Color Urine Appearance Urine pH Ur Specific Victoria Urine Protein Urine Glucose (UA) Urine Ketones Urine Blood Urine Nitrite Ur Leukocyte Esterase Urine WBC (Auto) 01/26/17 01/26/17 01/26/17 14:04 14:04 20:24 CK-MB (CK-2) 0.99 1.17 Troponin I < 0.012 < 0.012 NT-Pro-B Natriuret Pep 28 01/27/17 01:27 CK-MB (CK-2) 0.94 Troponin I < 0.012 NT-Pro-B Natriuret Pep Impressions: Abdomen/Pelvis CT 01/26/17 05:24 IMPRESSION: Moderate pancreatitis/duodenitis pattern. Assessment & Plan - Diagnosis (1) Diabetic ketoacidosis Qualifiers: Diabetes mellitus type: type 2 Diabetes mellitus complication detail: without coma Qualified Code(s): E13.10 - Other specified diabetes mellitus with ketoacidosis without coma Is this a current diagnosis for this admission?: Yes Plan: See covering attending physician orders. (2) Acute pancreatitis Qualifiers: Pancreatitis type: unspecified pancreatitis type Acute pancreatitis complication: unspecified Qualified Code(s): K85.90 - Acute pancreatitis without necrosis or infection, unspecified Is this a current diagnosis for this admission?: Yes Plan: See covering attending physician orders. (3) Acute kidney injury Is this a current diagnosis for this admission?: Yes Plan: See covering attending physician orders. (4) Hyperkalemia Is this a current diagnosis for this admission?: Yes Plan: See covering attending physician orders. (5) Probable sepsis Is this a current diagnosis for this admission?: Yes Plan: See covering attending physician orders. I will start on IV Cefotaxime for probable infection with gram positive cocci growing in only one bottle of blood culture. - Time Time Spent with patient: 25-34 minutes Medications reviewed and adjusted accordingly: Yes Anticipated discharge: Home Within: Other - Inpatient Certification Based on my medical assessment, after consideration of the patient's comorbidities, presenting symptoms, or acuity I expect that the services needed warrant INPATIENT care.: Yes I certify that my determination is in accordance with my understanding of Medicare's requirements for reasonable and necessary INPATIENT services [42 CFR 412.3e].: Yes Medical Necessity: Need Close Monitoring Due to Risk of Patient Decompensation, Need For IV Fluids, Need For Continuous Telemetry Monitoring, Risk of Complication if Not Cared For in Hospital Post Hospital Care: D/C Eyeglass Cutter Documentation - Plan Summary Plan Summary: See covering attending physician orders.
[2017-01-27 14:32] LABS: ANION GAP 15 (5-19); BLOOD UREA NITROGEN 49 mg/dL (7-20); CALCIUM 10.3 mg/dL (8.4-10.2); CARBON DIOXIDE 18 mmol/L (22-30); CHLORIDE 104 mmol/L (98-107); CREATININE RESULT 2.42 mg/dL (0.52-1.25); GLUCOSE 97 mg/dL (75-110); POTASSIUM 4.3 mmol/L (3.6-5.0); SODIUM 137.1 mmol/L (137-145)
[2017-01-27] MEDS ORDERED: NORMAL SALINE 1000 ML 1,000 ML IV PRN (14:50)
[2017-01-27] MEDS: NORMAL SALINE 1000 ML 1,000 ML IV PRN (15:12)
[2017-01-27] MEDS: CEFOTAXIME SODIUM 1 GM in DEXTROSE 5%-WATER 50 ML IV SCH (17:37)
[2017-01-27] MEDS ORDERED: DEXTROSE 40% GEL 15 GM TUBE PO PRN (18:55)
[2017-01-27] MEDS ORDERED: DEXTROSE 40% GEL 15 GM TUBE X 2 PO PRN (18:55)
[2017-01-27] MEDS ORDERED: DEXTROSE 50%-WATER SYRINGE 25 GM/50 ML DOSE IV PRN (18:55)
[2017-01-27] MEDS ORDERED: GLUCAGON,HUMAN RECOMB 1 MG INJ IM PRN (18:55)
[2017-01-27] MEDS ORDERED: DEXTROSE 50%-WATER SYRINGE 12.5 GM/25 ML DOSE IV PRN (18:55)
[2017-01-27] MEDS: INSULIN LISPRO 100 UNIT/ML 3 ML VIAL SUBCUT PRN (20:10)
[2017-01-28] MEDS: INSULIN LISPRO 100 UNIT/ML 3 ML VIAL SUBCUT PRN ×4 (00:17→17:08)
[2017-01-28] MEDS: NORMAL SALINE 1000 ML 1,000 ML IV PRN ×2 (02:31→15:50)
[2017-01-28 05:07] LABS: ALANINE AMINOTRANSFERASE 49 U/L (21-72); ALBUMIN 3.6 g/dL (3.5-5.0); ALKALINE PHOSPHATASE 62 U/L (38-126); AMYLASE 121 U/L (30-110); ANION GAP 12 (5-19); ASPARTATE AMINO TRANSFERASE 45 U/L (17-59); BILIRUBIN,DIRECT 0.5 mg/dL (0.0-0.4); BILIRUBIN,TOTAL 0.6 mg/dL (0.2-1.3); BLOOD UREA NITROGEN 45 mg/dL (7-20); CALCIUM 10.2 mg/dL (8.4-10.2); CARBON DIOXIDE 19 mmol/L (22-30); CHLORIDE 105 mmol/L (98-107); CREATININE RESULT 2.34 mg/dL (0.52-1.25); GLUCOSE 196 mg/dL (75-110); LIPASE 425.2 U/L (23-300); MAGNESIUM 2.2 mg/dL (1.6-2.3); POTASSIUM 4.8 mmol/L (3.6-5.0); SODIUM 135.9 mmol/L (137-145); TOTAL PROTEIN 7.2 g/dL (6.3-8.2)
[2017-01-28] MEDS: HEPARIN SOD (PORCINE) 5,000 UNIT/ML 1 ML SYRINGE SUBCUT SCH ×3 (06:26→21:25)
[2017-01-28] MEDS: CEFOTAXIME SODIUM 1 GM in DEXTROSE 5%-WATER 50 ML IV SCH ×2 (06:26→17:08)
[2017-01-28] MEDS: AMLODIPINE BESYLATE 5 MG TABLET PO SCH (10:22)
[2017-01-28] MEDS: LANSOPRAZOLE 30 MG TAB.RAP.DR PO SCH (10:22)
[2017-01-28] MEDS: NEBIVOLOL HCL 10 MG TABLET PO SCH (10:23)
[2017-01-28] MEDS: OMEGA-3 ACID ETHYL ESTERS 1 GM CAPSULE PO SCH (10:23)
--- NOTE | 2017-01-28 14:15 | PDOC PROGRESS REPORT ---
Subjective Progress Note for:: 01/28/17 Subjective:: No chest pain or difficulty with breathing. Patient reported improved abdominal pain. No nausea or vomiting. No fever or chills. Remain on IV fluid support therapy. Physical Exam Vital Signs: Temp Pulse Resp BP Pulse Ox 97.6 F 58 L 18 127/74 H 93 01/28/17 11:19 01/28/17 11:19 01/28/17 11:19 01/28/17 11:19 01/28/17 11:19 Intake & Output 01/27/17 01/28/17 01/29/17 06:59 06:59 06:59 Intake Total 2418 1700 Output Total 4 Balance 2418 1696 Weight 111.2 kg 111.2 kg Physical Exam: General appearance: PRESENT: no acute distress Head exam: PRESENT: atraumatic, normocephalic Eye exam: PRESENT: conjunctiva pink, scleral icterus. ABSENT: conjunctiva pale Mouth exam: PRESENT: moist Respiratory exam: PRESENT: clear to auscultation duglas Cardiovascular exam: PRESENT: RRR. ABSENT: diastolic murmur, rubs, systolic murmur GI/Abdominal exam: PRESENT: normal bowel sounds, tenderness - lower quadrants. ABSENT: ascites, distended, guarding, mass, Bass's sign, rebound Rectal exam: PRESENT: deferred Extremities exam: ABSENT: pedal edema Musculoskeletal exam: PRESENT: normal inspection Neurological exam: PRESENT: alert, awake, oriented to person, oriented to place , oriented to time, oriented to situation, CN II-XII grossly intact. ABSENT: motor sensory deficit Psychiatric exam: PRESENT: appropriate affect, normal mood. ABSENT: homicidal ideation, suicidal ideation Skin exam: PRESENT: dry, intact, warm. ABSENT: cyanosis, rash Results Laboratory Results: 01/26/17 14:04 01/28/17 04:39 01/27/17 01/28/17 13:45 04:39 Sodium 137.1 135.9 L Potassium 4.3 4.8 Chloride 104 105 Carbon Dioxide 18 L 19 L Anion Gap 15 12 BUN 49 H 45 H Creatinine 2.42 H 2.34 H Est GFR ( Amer) 34 L 36 L Est GFR (Non-Af Amer) 28 L 29 L Glucose 97 196 H Calcium 10.3 H 10.2 Magnesium 2.2 Total Bilirubin 0.6 AST 45 ALT 49 Alkaline Phosphatase 62 Total Protein 7.2 Albumin 3.6 Amylase 121 H Lipase 425.2 H 01/26/17 17:00 Clean Catch Midstream Urine Culture - Final NO GROWTH 2 DAYS 01/26/17 01/26/17 01/26/17 14:04 14:04 20:24 CK-MB (CK-2) 0.99 1.17 Troponin I < 0.012 < 0.012 NT-Pro-B Natriuret Pep 28 01/27/17 01:27 CK-MB (CK-2) 0.94 Troponin I < 0.012 NT-Pro-B Natriuret Pep Impressions: Abdomen/Pelvis CT 01/26/17 05:24 IMPRESSION: Moderate pancreatitis/duodenitis pattern. Assessment & Plan - Diagnosis (1) Diabetic ketoacidosis Qualifiers: Diabetes mellitus type: type 2 Diabetes mellitus complication detail: without coma Qualified Code(s): E13.10 - Other specified diabetes mellitus with ketoacidosis without coma Is this a current diagnosis for this admission?: Yes (2) Acute pancreatitis Qualifiers: Pancreatitis type: unspecified pancreatitis type Acute pancreatitis complication: unspecified Qualified Code(s): K85.90 - Acute pancreatitis without necrosis or infection, unspecified Is this a current diagnosis for this admission?: Yes (3) Acute kidney injury Is this a current diagnosis for this admission?: Yes (4) Hyperkalemia Is this a current diagnosis for this admission?: Yes (5) Probable sepsis Is this a current diagnosis for this admission?: Yes - Time Time Spent with patient: 25-34 minutes Medications reviewed and adjusted accordingly: Yes Within: Other - Inpatient Certification Based on my medical assessment, after consideration of the patient's comorbidities, presenting symptoms, or acuity I expect that the services needed warrant INPATIENT care.: Yes I certify that my determination is in accordance with my understanding of Medicare's requirements for reasonable and necessary INPATIENT services [42 CFR 412.3e].: Yes Medical Necessity: Need Close Monitoring Due to Risk of Patient Decompensation, Need For IV Fluids, Need For Continuous Telemetry Monitoring, Need for IV Antibiotics, Risk of Complication if Not Cared For in Hospital Post Hospital Care: D/C Tele[employer] Billing Analyst Documentation - Plan Summary Plan Summary: Maintain on IV fluid support. Advance diet to clear liquid today. Maintain on IV Fortaz coverage. Follow up on blood culture findings.
[2017-01-29] MEDS: NORMAL SALINE 1000 ML 1,000 ML IV PRN ×2 (04:34→15:36)
[2017-01-29] MEDS: HEPARIN SOD (PORCINE) 5,000 UNIT/ML 1 ML SYRINGE SUBCUT SCH ×3 (05:58→22:31)
[2017-01-29] MEDS: CEFOTAXIME SODIUM 1 GM in DEXTROSE 5%-WATER 50 ML IV SCH ×2 (05:58→17:25)
[2017-01-29 06:44] LABS: ALANINE AMINOTRANSFERASE 64 U/L (21-72); ALBUMIN 3.6 g/dL (3.5-5.0); ALKALINE PHOSPHATASE 63 U/L (38-126); AMYLASE 159 U/L (30-110); ANION GAP 13 (5-19); ASPARTATE AMINO TRANSFERASE 69 U/L (17-59); BILIRUBIN,DIRECT 0.5 mg/dL (0.0-0.4); BILIRUBIN,TOTAL 0.7 mg/dL (0.2-1.3); BLOOD UREA NITROGEN 38 mg/dL (7-20); CALCIUM 10.3 mg/dL (8.4-10.2); CARBON DIOXIDE 18 mmol/L (22-30); CHLORIDE 105 mmol/L (98-107); CREATININE RESULT 1.85 mg/dL (0.52-1.25); GLUCOSE 189 mg/dL (75-110); LIPASE 625.5 U/L (23-300); MAGNESIUM 1.9 mg/dL (1.6-2.3); POTASSIUM 4.8 mmol/L (3.6-5.0); TOTAL PROTEIN 7.2 g/dL (6.3-8.2)
[2017-01-29] MEDS: INSULIN LISPRO 100 UNIT/ML 3 ML VIAL SUBCUT PRN ×3 (08:09→17:25)
[2017-01-29] MEDS: OMEGA-3 ACID ETHYL ESTERS 1 GM CAPSULE PO SCH (09:04)
[2017-01-29] MEDS: ASPIRIN 81 MG TABLET, ENT COATED PO SCH (09:04)
[2017-01-29] MEDS: ERGOCALCIFEROL (VITAMIN D2) 50000 UNIT (1.25 MG) CAPSULE PO SCH (09:05)
[2017-01-29] MEDS: NEBIVOLOL HCL 10 MG TABLET PO SCH (09:05)
[2017-01-29] MEDS: AMLODIPINE BESYLATE 5 MG TABLET PO SCH (09:05)
[2017-01-29] MEDS: LANSOPRAZOLE 30 MG TAB.RAP.DR PO SCH (09:05)
[2017-01-29] MEDS: DEXTROSE 5%-NORMAL SALINE 1,000 ML IV PRN (17:59)
[2017-01-29] MEDS ORDERED: DEXTROSE 5%-NORMAL SALINE 1,000 ML IV PRN (18:01)
[2017-01-29] MEDS ORDERED: PIOGLITAZONE HCL 30 MG TABLET PO ONE (18:30)
--- NOTE | 2017-01-29 20:58 | PDOC PROGRESS REPORT ---
Subjective Progress Note for:: 01/29/17 Subjective:: Patient was admitted for the management of acute pancreatitis due to metabolic etiology, he was started on clear liquid diet this morning the serum lipase is increased from yesterday, he be kept n.p.o. for 24 hours to ensure that there is no worsening of the inflammatory process of the pancreas. Patient was advised against the use of DPP-4 inhibitors class of anti-diabetic medication because of the association between the use of DPP- 4 inhibitors and pancreatitis. Physical Exam Vital Signs: Temp Pulse Resp BP Pulse Ox 99.0 F 55 L 18 103/70 96 01/29/17 15:40 01/29/17 15:40 01/29/17 15:40 01/29/17 15:40 01/29/17 15:40 Intake & Output 01/28/17 01/29/17 01/30/17 06:59 06:59 06:59 Intake Total 1700 2324 4004 Output Total 4 Balance 1696 2324 4004 Weight 111.2 kg 108.2 kg General appearance: PRESENT: no acute distress Head exam: PRESENT: atraumatic, normocephalic Eye exam: PRESENT: conjunctiva pink, EOMI, PERRLA Ear exam: PRESENT: normal external ear exam Mouth exam: PRESENT: moist, tongue midline Neck exam: PRESENT: full ROM Respiratory exam: PRESENT: clear to auscultation duglas Cardiovascular exam: PRESENT: RRR, +S1, +S2 Pulses: PRESENT: normal dorsalis pedis pul, +2 pedal pulses bilateral Vascular exam: PRESENT: normal capillary refill GI/Abdominal exam: PRESENT: normal bowel sounds, soft Rectal exam: PRESENT: deferred Neurological exam: PRESENT: alert, awake, oriented to person, oriented to place , oriented to time, oriented to situation, CN II-XII grossly intact. ABSENT: motor sensory deficit Psychiatric exam: PRESENT: appropriate affect, normal mood Skin exam: PRESENT: dry, intact, warm Results Laboratory Results: 01/26/17 14:04 01/29/17 06:16 01/29/17 01/29/17 01/29/17 04:10 06:16 18:38 Sodium Cancelled 136.0 L Potassium Cancelled 4.8 Chloride Cancelled 105 Carbon Dioxide Cancelled 18 L Anion Gap Cancelled 13 BUN Cancelled 38 H Creatinine Cancelled 1.85 H Est GFR ( Amer) Cancelled 47 L Est GFR (Non-Af Amer) Cancelled 39 L Glucose Cancelled 189 H Calcium Cancelled 10.3 H Magnesium Cancelled 1.9 Total Bilirubin Cancelled 0.7 AST Cancelled 69 H ALT Cancelled 64 Alkaline Phosphatase Cancelled 63 Total Protein Cancelled 7.2 Albumin Cancelled 3.6 Amylase Cancelled 159 H Lipase Cancelled 625.5 H 689.6 H 01/26/17 01/26/17 01/26/17 14:04 14:04 20:24 CK-MB (CK-2) 0.99 1.17 Troponin I < 0.012 < 0.012 NT-Pro-B Natriuret Pep 28 01/27/17 01:27 CK-MB (CK-2) 0.94 Troponin I < 0.012 NT-Pro-B Natriuret Pep Impressions: Abdomen/Pelvis CT 01/26/17 05:24 IMPRESSION: Moderate pancreatitis/duodenitis pattern. Assessment & Plan - Diagnosis (1) Acute pancreatitis Qualifiers: Pancreatitis type: unspecified pancreatitis type Acute pancreatitis complication: unspecified Qualified Code(s): K85.90 - Acute pancreatitis without necrosis or infection, unspecified Is this a current diagnosis for this admission?: Yes Plan: He was admitted for the management of acute pancreatitis, he was started on clear liquid diet this morning, the serum lipase is on the increased, he be kept n.p.o. for the next 24 hours on E will be started on 5% dextrose normal saline at 100 cc/h (2) Diabetic ketoacidosis Qualifiers: Diabetes mellitus type: type 2 Diabetes mellitus complication detail: without coma Qualified Code(s): E13.10 - Other specified diabetes mellitus with ketoacidosis without coma Is this a current diagnosis for this admission?: Yes (3) Hyperkalemia Is this a current diagnosis for this admission?: Yes
[2017-01-30] MEDS: INSULIN LISPRO 100 UNIT/ML 3 ML VIAL SUBCUT PRN ×4 (00:13→16:13)
[2017-01-30] MEDS: CEFOTAXIME SODIUM 1 GM in DEXTROSE 5%-WATER 50 ML IV SCH ×2 (06:36→17:01)
[2017-01-30] MEDS: HEPARIN SOD (PORCINE) 5,000 UNIT/ML 1 ML SYRINGE SUBCUT SCH ×3 (06:36→22:32)
[2017-01-30] MEDS: PIOGLITAZONE HCL 30 MG TABLET PO SCH (07:50)
[2017-01-30] MEDS: NEBIVOLOL HCL 10 MG TABLET PO SCH (09:55)
[2017-01-30] MEDS: OMEGA-3 ACID ETHYL ESTERS 1 GM CAPSULE PO SCH (09:56)
[2017-01-30] MEDS: LANSOPRAZOLE 30 MG TAB.RAP.DR PO SCH (09:56)
[2017-01-30] MEDS: ASPIRIN 81 MG TABLET, ENT COATED PO SCH (09:56)
[2017-01-30] MEDS: AMLODIPINE BESYLATE 5 MG TABLET PO SCH (09:56)
--- NOTE | 2017-01-30 20:40 | PDOC PROGRESS REPORT ---
Subjective Progress Note for:: 01/30/17 Subjective:: Patient was seen by the bedside, the serum lipase remains elevated, 642.5, patient is not symptomatic he has no abdominal pains no abdominal symptoms he be watched for 1 more day if he remained asymptomatic he be discharged home in the morning even if the lipase remains elevated. Physical Exam Vital Signs: Temp Pulse Resp BP Pulse Ox 97.8 F 54 L 12 125/76 98 01/30/17 19:56 01/30/17 19:56 01/30/17 19:56 01/30/17 19:56 01/30/17 19:56 Intake & Output 01/29/17 01/30/17 01/31/17 06:59 06:59 06:59 Intake Total 2324 5366 1150 Balance 2324 5366 1150 Weight 108.2 kg 107.1 kg General appearance: PRESENT: no acute distress, well-developed, well-nourished Head exam: PRESENT: atraumatic, normocephalic Eye exam: PRESENT: conjunctiva pink, EOMI, PERRLA Ear exam: PRESENT: normal external ear exam Mouth exam: PRESENT: moist, tongue midline Neck exam: PRESENT: full ROM Respiratory exam: PRESENT: clear to auscultation duglas Cardiovascular exam: PRESENT: RRR, +S1, +S2 Pulses: PRESENT: normal dorsalis pedis pul, +2 pedal pulses bilateral Vascular exam: PRESENT: normal capillary refill GI/Abdominal exam: PRESENT: normal bowel sounds, soft Rectal exam: PRESENT: deferred Neurological exam: PRESENT: alert, awake, oriented to person, oriented to place , oriented to time, oriented to situation, CN II-XII grossly intact Psychiatric exam: PRESENT: appropriate affect, normal mood Skin exam: PRESENT: dry, intact, warm Results Laboratory Results: 01/26/17 14:04 01/29/17 06:16 01/30/17 15:59 Lipase 642.5 H 01/26/17 15:44 Blood Blood Culture - Final Staphylococcus Hominis 01/26/17 01/26/17 01/26/17 14:04 14:04 20:24 CK-MB (CK-2) 0.99 1.17 Troponin I < 0.012 < 0.012 NT-Pro-B Natriuret Pep 28 01/27/17 01:27 CK-MB (CK-2) 0.94 Troponin I < 0.012 NT-Pro-B Natriuret Pep Impressions: Abdomen/Pelvis CT 01/26/17 05:24 IMPRESSION: Moderate pancreatitis/duodenitis pattern. Assessment & Plan - Diagnosis (1) Acute pancreatitis Qualifiers: Pancreatitis type: unspecified pancreatitis type Acute pancreatitis complication: unspecified Qualified Code(s): K85.90 - Acute pancreatitis without necrosis or infection, unspecified Is this a current diagnosis for this admission?: Yes (2) Diabetic ketoacidosis Qualifiers: Diabetes mellitus type: type 2 Diabetes mellitus complication detail: without coma Qualified Code(s): E13.10 - Other specified diabetes mellitus with ketoacidosis without coma Is this a current diagnosis for this admission?: Yes (3) Hyperkalemia Is this a current diagnosis for this admission?: Yes
[2017-01-31] MEDS: HEPARIN SOD (PORCINE) 5,000 UNIT/ML 1 ML SYRINGE SUBCUT SCH ×2 (06:07→14:18)
[2017-01-31] MEDS: CEFOTAXIME SODIUM 1 GM in DEXTROSE 5%-WATER 50 ML IV SCH (06:07)
[2017-01-31] MEDS: PIOGLITAZONE HCL 30 MG TABLET PO SCH (08:27)
[2017-01-31] MEDS: AMLODIPINE BESYLATE 5 MG TABLET PO SCH (10:06)
[2017-01-31] MEDS: NEBIVOLOL HCL 10 MG TABLET PO SCH (10:06)
[2017-01-31] MEDS: OMEGA-3 ACID ETHYL ESTERS 1 GM CAPSULE PO SCH (10:06)
[2017-01-31] MEDS: ERGOCALCIFEROL (VITAMIN D2) 50000 UNIT (1.25 MG) CAPSULE PO SCH (10:07)
[2017-01-31] MEDS: LANSOPRAZOLE 30 MG TAB.RAP.DR PO SCH (10:07)
[2017-01-31] MEDS: ASPIRIN 81 MG TABLET, ENT COATED PO SCH (10:07)
--- NOTE | 2017-01-31 14:54 | PDOC DISCHARGE SUMMARY ---
General - Admit/Disc Date/PCP Admission Date/Primary Care Provider: 01/26/17 13:16 JUNIOR GROSS MD Discharge Date: 01/31/17 - Discharge Diagnosis (1) Acute pancreatitis Is this a current diagnosis for this admission?: Yes (2) Diabetic ketoacidosis Is this a current diagnosis for this admission?: Yes (3) Hyperkalemia Is this a current diagnosis for this admission?: Yes (4) Acute kidney injury Is this a current diagnosis for this admission?: Yes (5) Chronic kidney disease, stage 3 Is this a current diagnosis for this admission?: Yes - Additional Information Resuscitation Status: Full Code Discharge Diet: Diabetic Discharge Activity: Activity As Tolerated Home Medications: Amlodipine Besylate [Norvasc 5 mg Tablet] 5 mg PO DAILY 01/26/17 Aspirin [Adult Low Dose Aspirin EC] 81 mg PO DAILY 01/26/17 Ergocalciferol (Vitamin D2) [Vitamin D2] 50,000 unit PO MOWE@1000 01/26/17 Esomeprazole Magnesium [Nexium] 40 mg PO DAILY 01/26/17 Fenofibrate Nanocrystallized [Tricor] 145 mg PO DAILY 01/26/17 Lisinopril/Hydrochlorothiazide [Lisinopril-Hctz 20-12.5 mg Tab] 2 each PO DAILY 01/26/17 Nebivolol HCl [Bystolic] 20 mg PO DAILY 01/26/17 Weston-3 Acid Ethyl Esters [Lovaza 1 gm Capsule] 1 gm PO DAILY 01/26/17 Atorvastatin Calcium 40 mg PO DAILY #90 tablet 01/31/17 Insulin Glargine,Hum.rec.anlog [Lantus Solostar] 25 unit SQ DAILY #3 insuln.pen 01/31/17 Pioglitazone HCl [Actos 30 mg Tablet] 30 mg PO QAM #90 tablet 01/31/17 History of Present Illness History of Present Illness: JARRELL MCNALLY is a 51 year old male he came to the emergency room today for evaluation of abdominal pain for the last 3 days, he has a history of chronic kidney disease stage III, progressive, he was recently diagnosed with diabetes mellitus, and he was recently started on Tradjenta and insulin because of his chronic kidney disease it could not be started on many of the oral hypoglycemic agents. In the emergency room he was evaluated a CAT scan of the abdomen and pelvis was done with no contrast it showed fluid surrounds the pancreas and consistent with pancreatitis, the serum lipase was elevated he was also in diabetic ketoacidosis. The glucose was 712, lipase 797, anion gap 25, creatinine 3.77 potassium 6.6 Hospital Course Hospital Course: Patient was admitted for the management of diabetic ketoacidosis, acute pancreatitis. The etiology of the acute pancreatitis is probably related to the DPP 4 inhibitor, Tradjenta that he was recently started on for his diabetes. He has chronic kidney disease stage III, he was recently diagnosed with type 2 diabetes mellitus, he was started on Tradjenta about couple of weeks ago, he developed progressive abdominal pain he came to emergency room for evaluation, CT scan of the abdomen and pelvis was done without contrast, it showed inflammation of the pancreas, lipase was also elevated and he was found to be in DKA. The assumption is that the acute pancreatitis precipitated the DKA, he was treated with insulin drip saline infusion he also had hyperkalemia due to acidosis. He had fever, it was assumed to be due to infection he was empirically treated with antibiotic there was acute kidney injury due to prerenal etiology that was corrected with fluid therapy ,patient has been asymptomatic for the last 2 days. He be discharged home today. The CAT scan of the abdomen and pelvis that was done did not show any gallstone Physical Exam Vital Signs: Temp Pulse Resp BP Pulse Ox 98.6 F 54 L 18 121/75 100 01/31/17 11:33 01/31/17 11:33 01/31/17 11:33 01/31/17 11:33 01/31/17 11:33 Intake & Output 01/30/17 01/31/17 02/01/17 06:59 06:59 06:59 Intake Total 5366 1851 Balance 5366 1851 Weight 107.1 kg 106 kg General appearance: PRESENT: no acute distress, well-developed, well-nourished Head exam: PRESENT: atraumatic, normocephalic Eye exam: PRESENT: conjunctiva pink, EOMI, PERRLA Ear exam: PRESENT: normal external ear exam Mouth exam: PRESENT: moist, tongue midline Neck exam: PRESENT: full ROM Cardiovascular exam: PRESENT: RRR, +S1, +S2 Pulses: PRESENT: normal dorsalis pedis pul, +2 pedal pulses bilateral Vascular exam: PRESENT: normal capillary refill GI/Abdominal exam: PRESENT: normal bowel sounds, soft Rectal exam: PRESENT: deferred Neurological exam: PRESENT: alert, awake, oriented to person, oriented to place , oriented to time, oriented to situation, CN II-XII grossly intact Psychiatric exam: PRESENT: appropriate affect, normal mood Skin exam: PRESENT: dry, intact, warm Results Laboratory Results: 01/26/17 14:04 01/29/17 06:16 01/30/17 01/31/17 15:59 13:45 Lipase 642.5 H 626.8 H 01/26/17 14:04 Blood Blood Culture - Final NO GROWTH IN 5 DAYS 01/26/17 15:44 Blood Blood Culture - Final Staphylococcus Hominis 01/26/17 01/26/17 01/26/17 14:04 14:04 20:24 CK-MB (CK-2) 0.99 1.17 Troponin I < 0.012 < 0.012 NT-Pro-B Natriuret Pep 28 01/27/17 01:27 CK-MB (CK-2) 0.94 Troponin I < 0.012 NT-Pro-B Natriuret Pep Impressions: Abdomen/Pelvis CT 01/26/17 05:24 IMPRESSION: Moderate pancreatitis/duodenitis pattern.
[2017-01-31 15:00] VITALS: BP 121/73
== END 2017-01-31 15:50 | disposition home or self-care (01) | DRG 438 ==
LOC: ER 23:46 → EH 01-26 10:28 → UNDOADMIN 01-26 10:28 → 3W 01-26 12:50 → EH 01-26 12:50 → 3W 01-26 13:16
PROVIDERS: ADMIT Internal Medicine; ATTEND Internal Medicine
DX: K85.90 Acute pancreatitis without necrosis or infection, unspecified (principal); E13.10 Other specified diabetes mellitus with ketoacidosis without coma; N17.9 Acute kidney failure, unspecified; E87.5 Hyperkalemia; I12.9 Hypertensive chronic kidney disease with stage 1 through stage 4 chronic kidney disease, or unspecified chronic kidney disease; N18.3 Chronic kidney disease, stage 3 (moderate); J44.9 Chronic obstructive pulmonary disease, unspecified; K21.9 Gastro-esophageal reflux disease without esophagitis; Z79.82 Long term (current) use of aspirin; Z79.899 Other long term (current) drug therapy
CPT/HCPCS: 36415; 74176; 80048; 80053; 80061; 80076; 80307; 81001; 82010; 82150; 82553; 82962; 83036; 83690; 83735; 83880; 84100; 84439; 84443; 84484; 85025; 85610; 87040; 87077; 87086; 87186; 93005; 93010; 94640; 96361; 96374; 99285; J0698; J1644; J1815; J3490; J7030

== ENCOUNTER → 2017-06-08 | Outpatient (CLI) | payer OTHER ==
--- NOTE | 2017-06-08 10:31 | RADIOLOGY REPORT (SQ) ---
EXAM DESCRIPTION: CT ABD/PELVIS WITH IV ORAL COMPLETED DATE/TIME: 06/08/2017 10:01 am REASON FOR STUDY: NONALCOHOLIC STEATOHEPATITIS (K75.81), PANCREATITIS (K85.80), DIAPHRAGMATIC K75.81 NONALCOHOLIC STEATOHEPATITIS (CORONEL) K85.80 OTHER ACUTE PANCREATITIS WITHOUT NECROSIS OR INFECTIO K 44.9 DIAPHRAGMATIC HERNIA WITHOUT OBSTRUCTION OR GANGRENE COMPARISON: 01/26/2017, 06/13/2016, and 12/23/2014. TECHNIQUE: CT scan of the abdomen and pelvis performed using helical scanning technique with dynamic intravenous contrast injection. No oral contrast. Images reviewed with lung, soft tissue, and bone windows. Reconstructed coronal and sagittal MPR images reviewed. Delayed images for evaluation of the urinary system also acquired. All images stored on PACS. All CT scanners at this facility use dose modulation, iterative reconstruction, and/or weight based d osing when appropriate to reduce radiation dose to as low as reasonably achievable (ALARA). [facility]: Dose Right [facility]: CareDose [facility]: Dose Right [facility]: Teradose 4D [facility]: Aldis CONTRAST TYPE AND DOSE: contrast/concentration: Isovue 370.00 mg/ml; Total Contrast Delivered: 96.0 ml; Total Saline Delivered: 72.0 ml RENAL FUNCTION: Creatinine 1.7. RADIATION DOSE: CT Rad equipment meets quality standard of care and radiation dose reduction techniq ues were employed. CTDIvol: 19.4 - 21.8 mGy. DLP: 2266 mGy-cm.. LIMITATIONS: None. FINDINGS: LOWER CHEST: No significant findings. No nodules or infiltrates. LIVER: Normal size. Marked diffuse fatty infiltration. Irregular low-attenuation appearance of the central liver, unchanged. No dilated ducts. SPLEEN: Normal size. No focal lesions. PANCREAS: No masses. No significant calcifications. No adjacent inflammation or peripancreatic fluid collections. Pancreatic duct not dilated. GALLBLADDER: No identified stones by CT criteria. No inflammatory changes to suggest cholecystitis. ADRENAL GLANDS: No significant masses or asymmetry. RIGHT KIDNEY AND URETER: No solid masses. No significant calcifications. No hydronephrosis or hyd roureter. LEFT KIDNEY AND URETER: No solid masses. No significant calcifications. No hydronephrosis or hydr oureter. AORTA AND VESSELS: No aneurysm. No dissection. Renal arteries, SMA, celiac without stenosis. RETROPERITONEUM: No retroperitoneal adenopathy, hemorrhage or masses. BOWEL AND PERITONEAL CAVITY: No masses or inflammatory changes. No free fluid or peritoneal masses. APPENDIX: Normal. PELVIS: No mass. No free fluid. Normal bladder. ABDOMINAL WALL: No masses. No hernias. BONES: No significant or acute findings. OTHER: No other significant finding. IMPRESSION: 1. DIFFUSE FATTY INFILTRATION OF THE LIVER. IRREGULAR LOW-ATTENUATION APPEARANCE OF THE CENTRAL LIVE R UNCHANGED. 2. NO OTHER SIGNIFICANT OR ACUTE FINDING IN THE ABDOMEN OR PELVIS ON CT SCAN WITH IV CONTRAST. TECHNICAL DOCUMENTATION: JOB ID: [id number] Quality ID # [id number]: Final reports with documentation of one or more dose reduction techniques (e.g., Au tomated exposure control, adjustment of the mA and/or kV according to patient size, use of iterative reconstruction technique) 2010 [employer]- All Rights Reserved
== END ==
LOC: RAD 09:08
PROVIDERS: ATTEND Internal Medicine Gastroenterology
DX: K75.81 Nonalcoholic steatohepatitis (NASH) (principal); K85.80 Other acute pancreatitis without necrosis or infection; K44.9 Diaphragmatic hernia without obstruction or gangrene
CPT/HCPCS: 74177; 82565

== ENCOUNTER → 2018-04-15 | Outpatient (CLI) | payer OTHER ==
--- NOTE | 2018-04-15 15:08 | RADIOLOGY REPORT (SQ) ---
EXAM DESCRIPTION: NM PARATHYROID IMAGING COMPLETED DATE/TIME: 04/15/2018 3:00 pm REASON FOR STUDY: HYPERCALCEMIA E83.52 HYPERCALCEMIA COMPARISON: None. RADIONUCLIDE AND DOSE: 21.9 millicuries Tc-99m Sestamibi. The route of agent administration: Intravenous ADDITIONAL DRUGS AND DOSES: None. TECHNIQUE: Early and delayed images of the neck acquired following radionuclide administration. LIMITATIONS: None. FINDINGS: Thyroid: Normal size. Homogeneous activity. Normal washout. No focal lesions. Parathyroid: No retained activity in the thyroid or elsewhere in the neck to indicate a parathyroid a denoma. Other: No other significant findings. IMPRESSION: NORMAL STUDY. NO EVIDENCE OF PARATHYROID ADENOMA. TECHNICAL DOCUMENTATION: JOB ID: [id number] [employer]- All Rights Reserved Reading location - IP/workstation name: [email or web address]
== END ==
LOC: RAD 11:05
PROVIDERS: ATTEND Internal Medicine Nephrology
DX: E83.52 Hypercalcemia (principal)
CPT/HCPCS: 78070; A9500; Q9969

== ENCOUNTER → 2018-09-13 | Outpatient (CLI) | payer OTHER ==
[2018-09-13 12:28] LABS: ABSOLUTE EOSINOPHILS # (AUTO) 0.1 10^3/uL (0.0-0.6); ABSOLUTE LYMPHOCYTES (AUTO) 1.6 10^3/uL (0.5-4.7); ABSOLUTE MONOCYTES (AUTO) 0.4 10^3/uL (0.1-1.4); ABSOLUTE NEUT (AUTO) 1.7 10^3/uL (1.7-8.2); BASOPHILS % (AUTO) 0.6 % (0-2); EOSINOPHILS % (AUTO) 1.4 % (0-6); HEMATOCRIT 28.8 % (37.9-51.0); HEMOGLOBIN 9.1 g/dL (13.5-17.0); LYMPHOCYTES % (AUTO) 42.4 % (13-45); MEAN CORPUSCULAR HEMOGLOBIN 25.8 pg (27.0-33.4); MEAN CORPUSCULAR HGB CONC 31.7 g/dL (32.0-36.0); MEAN CORPUSCULAR VOLUME 81 fl (80-97); MONOCYTES % (AUTO) 10.3 % (3-13); PLATELET COUNT 316 10^3/uL (150-450); RED BLOOD COUNT 3.55 10^6/uL (4.35-5.55); RED CELL DISTRIBUTION WIDTH 14.4 % (11.5-14.0); SEGMENTED NEUTROPHILS % (AUTO) 45.3 % (42-78); TOTAL CELLS COUNTED % (AUTO) 100 %; WHITE BLOOD COUNT 3.8 10^3/uL (4.0-10.5)
[2018-09-13 12:42] LABS: UR PRO/CREAT RATIO RESULT 0.4 mg/mg (0.0-0.2); URINE CREATININE 110.3 mg/dL (22-328); URINE PROTEIN 44.6 mg/dL (<12)
[2018-09-13 12:49] LABS: ANION GAP 10 (5-19); BLOOD UREA NITROGEN 23 mg/dL (7-20); CALCIUM 10.1 mg/dL (8.4-10.2); CARBON DIOXIDE 24 mmol/L (22-30); CHLORIDE 108 mmol/L (98-107); GLUCOSE 108 mg/dL (75-110); SODIUM 141.7 mmol/L (137-145)
[2018-09-13 12:58] LABS: POTASSIUM 5.5 mmol/L (3.6-5.0)
== END ==
LOC: OD 11:49
PROVIDERS: ATTEND Internal Medicine Nephrology
DX: N18.3 Chronic kidney disease, stage 3 (moderate) (principal); D63.1 Anemia in chronic kidney disease; R80.9 Proteinuria, unspecified
CPT/HCPCS: 36415; 80048; 82306; 82570; 84156; 85025

== ENCOUNTER → 2018-09-16 | Outpatient (CLI) | payer OTHER | LOC: OD 15:19 | PROVIDERS: ATTEND Internal Medicine Nephrology | DX: E87.5 Hyperkalemia (principal) | CPT/HCPCS: 36415; 84132 ==

== ENCOUNTER → 2019-11-11 | Outpatient (CLI) | payer OTHER ==
--- NOTE | 2019-11-11 11:47 | RADIOLOGY REPORT (SQ) ---
EXAM DESCRIPTION: CHEST PA/LATERAL IMAGES COMPLETED DATE/TIME: 11/11/2019 9:01 am REASON FOR STUDY: HYPERCALCEMIA COMPARISON: None. EXAM PARAMETERS: NUMBER OF VIEWS: two views TECHNIQUE: Digital Frontal and Lateral radiographic views of the chest acquired. RADIATION DOSE: NA LIMITATIONS: none FINDINGS: LUNGS AND PLEURA: No opacities, masses or pneumothorax. No pleural effusion. MEDIASTINUM AND HILAR STRUCTURES: No masses or contour abnormalities. HEART AND VASCULAR STRUCTURES: Heart normal size. No evidence for failure. BONES: No acute findings. HARDWARE: None in the chest. OTHER: No other significant finding. IMPRESSION: NO SIGNIFICANT RADIOGRAPHIC FINDING IN THE CHEST. TECHNICAL DOCUMENTATION: JOB ID: [id number] 2010 [employer]- All Rights Reserved Reading location - IP/workstation name: [email or web address]
== END ==
LOC: OD 08:44
PROVIDERS: ATTEND Internal Medicine Nephrology
DX: E83.52 Hypercalcemia (principal)
CPT/HCPCS: 71046